=== PATIENT | male | born 1945 | race Two or more races ===

== ENCOUNTER → 2018-11-17 | Outpatient (CLI) | payer OTHER ==
[~2018-11-17] MED LIST: ACETAMINOPHEN500 MG PO; Artificial Tear15 M4 BOTHEYES; CIPR500 PO; ERYT1OIN LEFTEYE; HYDACE5 PO; NAPR500 PO
== END | disposition home or self-care (01) ==
LOC: LAB EV 14:45 → LAB SHORT 14:45
DX: N39.0 Urinary tract infection, site not specified (principal)
CPT/HCPCS: 87077; 87086; 87186

== ENCOUNTER 2020-09-22 06:07 | Day surgery (SDC) | payer OTHER ==
[~2020-09-22] VITALS: Ht 175.3 cm; Wt 90.0 kg
[~2020-09-22 06:07] MED LIST changes: +ATOR40TA PO; +NITR.4SL SL; +TAMS.4ER PO
[2020-09-22] MEDS ORDERED: TAMS.4ER PO (06:37)
--- NOTE | 2020-09-22 07:36 | NUR ---
PT LINQ EXPLANTED BY DR ROBLES. PT TOLERATED PROCEDURE WELL. PT VERBALIZED UNDERSTANDING OF WRITTEN AND VERBAL D/C INST. PT TO FOLLOW UP WITH DR ROBLES September AT 0900 FOR WOUND CHECK. -SWELLING OR BLEEDING L UPPER CHEST ON D/C.
== END 2020-09-22 11:00 | disposition home or self-care (01) ==
LOC: MHTC 06:07
DX: Z45.09 Encounter for adjustment and management of other cardiac device (principal); I25.10 Atherosclerotic heart disease of native coronary artery without angina pectoris; I10 Essential (primary) hypertension; Z87.891 Personal history of nicotine dependence; E78.5 Hyperlipidemia, unspecified
CPT/HCPCS: 33286

== ENCOUNTER 2021-12-25 06:10 | Day surgery (SDC) | payer OTHER ==
[~2021-12-25] VITALS: Ht 175.3 cm; Wt 85.4 kg
--- NOTE | 2021-12-25 07:42 | NUR ---
12/25/21 0742 TITA LUCAS BUPIVACAINE 0.25% 15MLS MIXED WITH 15MLS OF BUPIVACAINE 0.75% TO CREATE A LOCAL SOLUTION OF 30MLS OF BUPIVACAINE 0.5%. EPI ADDED TO SOLUTION TO CREATE A SOLUTION OF BUPIVACAINE 0.5% WITH EPI 1:200,000. 30MLS OF LOCAL SOLUTION POURED ONTO STERILE FIELD FOR USE DURING CASE.
--- NOTE | 2021-12-25 08:29 | NUR ---
12/25/21 0829 JOSE ANTUNEZ PT SITTING BESIDE PT IN RECLINER. PT DRINKING COFFEE AND EATING LIZY CRACKERS. UP TO BATHROOM. DENIES PAIN
== END 2021-12-25 08:58 | disposition home or self-care (01) ==
LOC: ORSCSDS 06:10
PROVIDERS: Podiatrist Foot & Ankle Surgery
PROC: 01BG0ZZ Excision of Tibial Nerve, Open Approach (ICD-10-PCS; principal; 2021-12-25 07:30)
DX: G57.61 Lesion of plantar nerve, right lower limb (principal); I10 Essential (primary) hypertension; I25.10 Atherosclerotic heart disease of native coronary artery without angina pectoris; Z79.899 Other long term (current) drug therapy
CPT/HCPCS: J0171; J0690; J1100; J2250; J2405; J2704; J2795; J3010; J7120

== ENCOUNTER → 2023-06-17 | Outpatient (CLI) | payer OTHER ==
[2023-06-17 16:54] LABS: BASOPHILS ABSOLUTE AUTO 0.04 K/mm3 (0.00-0.23); BASOPHILS PERCENT AUTO 0 % (0-2); EOSINOPHILS PERCENT AUTO 0 % (0-6); Hemoglobin 14.9 g/dL (13.5-17.5); IMMATURE GRAN PERCENT AUTO 1 % (0-1); LYMPHOCYTES ABSOLUTE AUTO 0.53 K/mm3 (0.84-5.20); LYMPHOCYTES PERCENT AUTO 3 % (21-46); MONOCYTES ABSOLUTE AUTO 1.05 K/mm3 (0.16-1.47); MONOCYTES PERCENT AUTO 6 % (4-13); Mean Corpuscular HGB 30.4 pg (26.0-34.0); Mean Corpuscular HGB Conc 33.9 g/dL (31.5-36.5); Mean Corpuscular Volume 90 fL (80-100); Mean Platelet Volume 9.8 fL (9.1-12.4); NEUTROPHILS ABSOLUTE AUTO 14.87 K/mm3 (1.96-9.15); NEUTROPHILS PERCENT AUTO 90 % (41-73); Platelet Count 184 K/mm3 (150-400); RDW Coefficient Variation 13.4 % (11.7-14.2); RDW Standard Deviation 43.8 fL (35.1-46.3); White Blood Cell Count 16.59 K/mm3 (4.00-11.30)
[2023-06-17 17:04] LABS: Albumin, Blood 3.9 g/dL (3.4-5.0); Albumin/Globulin Ratio 1.1 (0.8-1.8); Bilirubin, Total 1.5 mg/dL (0.1-1.0); Bun/Creatinine Ratio 15.7 (12.0-20.0); Calcium, Blood 8.6 mg/dL (8.5-10.1); Creatinine, Blood 1.02 mg/dL (0.60-1.20); Globulin, Blood 3.5 g/dL (2.2-4.0); Potassium, Blood 3.9 mmol/L (3.5-5.5); Total Protein, Blood 7.4 g/dL (6.4-8.2)
== END | disposition home or self-care (01) ==
LOC: LAB 16:49 → LAB SHORT 16:49
PROVIDERS: Family Medicine
DX: R50.9 Fever, unspecified (principal)
CPT/HCPCS: 80053; 85025; 87077; 87086; 87186

== ENCOUNTER → 2024-09-04 | Outpatient (CLI) | payer OTHER | END | disposition home or self-care (01) | LOC: LAB 12:48 → LAB SHORT 12:48 | DX: R31.0 Gross hematuria (principal) | CPT/HCPCS: 87086 ==

== ENCOUNTER → 2024-11-21 | Outpatient (CLI) | payer OTHER | LOC: LAB 17:14 → LAB SHORT 17:14 | DX: R31.0 Gross hematuria (principal) | CPT/HCPCS: 87086 ==